=== PATIENT | female | born 1990 | race Hispanic/Latino ===

== ENCOUNTER 2019-12-29 15:17 | Inpatient (IN) | payer OTHER, SELFPAY ==
--- OUTSIDE RECORDS SUMMARY | 2019-12-29 15:20 | XMS REPORT | Summary of Care ---
:1990 Author Organization [facility] - Health Address [address] [place], [place] [address] Care Team Providers Name Role Phone Pcp, Patient Does Not Have A Primary Care Provider [id number] Reason for Referral Radiology Services (STAT) Status Reason Specialty Diagnoses / Referred By Referred To Procedures Contact Contact New Request Diagnostic Diagnoses RUQ pain Lucio Wilson, Radiology Procedures XR KUB [address] [place] [address] [place] [id number] Radiology Services (STAT) Status Reason Specialty Diagnoses / Referred By Referred To Procedures Contact Contact New Request Diagnostic Diagnoses RUQ pain Lucio Wilson, Radiology Procedures US GALL BLADDER [address] [facility] [address] [place] [address] Reason for Visit Reason Comments Abdominal Pain Auth/Cert Status Reason Specialty Diagnoses / Referred By Referred To Procedures Contact Contact Emergency Medicine [facility] Em ergency Dept [address] [place] [address] [place] [address] Fax: Encounter Details Date Type Department Care Team Description 12/28/2019 Emergency ADC-Emergency Lucio Wilson MD RUQ pain (Primary Dx); Department [address] [facility] Dehydration [address] [place] [address] [address] [place] [address] [place] [phone] Allergies No Known Allergiesdocumented as of this encounter (statuses as of 12/28/2019) Medications Medication Sig Dispensed Refills Start Date End Date Status ketorolac (TORADOL) 10 Take 1 tablet by 15 tablet 0 06/08/2016 Active mg tablet mouth every 6 (six) hours as needed (FOR HEADACHES). dicyclomine (BENTYL) 10 Take 1 capsule 20 capsule 0 12/28/2019 Active mg capsuleIndications: by mouth 4 RUQ pain (four) times daily. ondansetron 4 mg Take 1 tablet by 20 tablet 0 12/28/2019 Active disintegrating mouth every 8 tabletIndications: RUQ (eight) hours as pain needed for Nausea and Vomiting (N/V). Polyethylene Glycol Take 1 Packet by 10 Packet 0 12/28/2019 Active 3350 (MIRALAX) 17 gram mouth every 24 powderIndications: RUQ (twenty-four) pain hours as needed for Constipation. documented as of this encounter (statuses as of 12/28/2019) Active Problems No known active problemsdocumented as of this encounter (statuses as of 12/28/2019) Social History Tobacco Use Types Packs/Day Years Used Date Never Assessed Sex Assigned at Date Recorded Not on file Job Start Date Occupation Industry Not on file Not on file Not on file Travel History Travel Start Travel End No recent travel history available. COVID-19 Exposure Response Date Recorded In the last month, have you been in contact with No / Unsure 12/28/2019 10:03 AM CDT someone who was confirmed or suspected to have Coronavirus / COVID-19? documented as of this encounter Last Filed Vital Signs Vital Sign Reading Time Taken Comments Blood Pressure 160/88 12/28/2019 12:00 PM CDT Pulse 87 12/28/2019 12:00 PM CDT Temperature 37.1 C (98.8 F) 12/28/2019 9:55 AM CDT Respiratory Rate 20 12/28/2019 12:00 PM CDT Oxygen Saturation 98% 12/28/2019 12:00 PM CDT Inhaled Oxygen Concentration - - Weight 68 kg (150 lb) 12/28/2019 9:55 AM CDT Height - - Body Mass Index 30.3 06/08/2016 9:08 AM CDT documented in this encounter Discharge Instructions InstructionsLucio Wilson MD - 12/28/2019 RETURN FOR ANY QUESTIONS OR CONCERNS Today you were seen by Lucio Wilson Jr., MD You were seen today for Chief Complaint Patient presents with Abdominal Pain Your ER diagnosis was ICD-10-CM ICD-9-CM 1. RUQ pain R10.11 789.01 NO LIFE-THREATENING FINDINGS ON TODAY'S EXAM. YOUR PRESCRIPTIONS : Check out [employer] for medication discounts Medication List ASK your doctor about these medications ketorolac 10 mg tablet Commonly known as: TORADOL Take 1 tablet by mouth every 6 (six) hours as needed (FOR HEADACHES). ER precautions and follow up : 1. Return to ER if your symptoms should worsen or fail to improve within 72 hours. 2. The care provided in the emergency room was for acute problems only. 3. You should follow up with your primary care provider within 72 hours. 4. Fill and take all your medications as prescribed. 5. Make sure you are staying adequately hydrated. Busque attencion immediatamente si usted tiene los sitomas sigue, vuelve peor o si hay sitomas nuevas o para cualquiera preoccupacion incluyendo dolor del pecho, falta aire, se siente debile, mas fievre, mas dolor, nausea, vomitando, sangrando que no es normal, confusion, baja or pierdas conciencia. MAY FOLLOW-UP WITH A PROVIDER OF YOUR CHOICE, SUCH : 1. A PHYSICIAN OF YOUR CHOICE 2. [facility], . LOCATIONS IN [facility] 3. [facility], [address] [place] [address]; [phone] OR, IF YOU WISH TO FOLLOW-UP WITHIN THE [facility], MAY TRY THESE OPTIONS (CLINIC APPOINTMENTS AVAILABLE ON [id number] BASIS): 1. SCHEDULE AN APPOINTMENT ONLINE AT WWW[facility] 2. OR CALL THE [facility] ACCESS CENTER AT OR 3. OR CALL YOUR [facility] PHYSICIAN'S OFFICE DIRECTLY IF YOU ARE ALREADY AN ESTABLISHED [facility] PATIENT. [facility] RETURN TO WORK / SCHOOL EXCUSE Rekha Peres WAS SEEN IN THE ER AND DISCHARGED 12/28/2019 TODAY, 11:34 AM & May return to Work / School / Incarceration on X with activity as tolerated indicated below. ___The following limitations apply until pt is seen by Physician and cleared to return to normal activity. _X_ Off for two days and return to activity as tolerated at work or school ___ No Sports ___ No work ___ Do not return until fever free for 24 hours. ___ No school LUCIO WILSON Jr., MD [facility] EMERGENCY DEPRTMENT [address] [place] [address] [place] [address] ### The patient may have been given Narcotic pain medications during their stay in the ED that may show up on a Drug Screen. The hospital discharge paper work will identify these medications. AttachmentsThe following attachments cannot be sent through Care Everywhere. Abdominal Pain, Adult (Croatian)Dehydration (Adult) (Croatian)documented in this encounter Plan of Treatment Health Maintenance Due Date Last Done Comments VARICELLA VACCINES ( - 1992 2-dose childhood series) DTaP,Tdap,and Td Vaccines ( - 2002 Tdap) PAP SMEAR 2012 INFLUENZA VACCINE (Season Ended) 2020 PNEUMOCOCCAL 0-64 YEARS COMBINED Aged Out No longer eligible based on SERIES patient's age to complete this topic documented as of this encounter Procedures Procedure Name Priority Date/Time Associated Comments Diagnosis XR KUB STAT 12/28/2019 11:21 RUQ pain Results for this AM CDT procedure are i n the results section. US GALL BLADDER STAT 12/28/2019 10:54 RUQ pain Results for this AM CDT procedure are i n the results section. CORONAVIRUS COVID-19 STAT 12/28/2019 10:07 RUQ pain Res ults for this TESTING AM CDT procedure are i n the results section. CBC WITH DIFFERENTIAL STAT 12/28/2019 10:07 RUQ pain Re sults for this AM CDT procedure are i n the results section. URINALYSIS STAT 12/28/2019 10:07 RUQ pain Results for this AM CDT procedure are i n the results section. ACTIVATED PARTIAL STAT 12/28/2019 10:07 RUQ pain Result s for this THRMPLAS GARY AM CDT procedure are i n the results section. PROTHROMBIN TIME / STAT 12/28/2019 10:07 RUQ pain Resul ts for this INR AM CDT procedure are i n the results section. CBC WITH DIFFERENTIAL Routine 12/28/2019 10:07 RUQ pain Re sults for this AM CDT procedure are i n the results section. BASIC METABOLIC PANEL STAT 12/28/2019 10:07 RUQ pain Re sults for this (NA, K, CL, CO2, AM CDT procedure a re in GLUCOSE, BUN, the results CREATININE, CA) section. HEPATIC FUNCTION STAT 12/28/2019 10:07 RUQ pain Results for this PANEL (41476) AM CDT procedure are in (ALB,T.PRO,BILI the results T,BU/BC,ALT,AST,ALK section. PHOS) LIPASE STAT 12/28/2019 10:07 RUQ pain Results for this AM CDT procedure are i n the results section. POCT TEST MELIZA 12/28/2019 10:03 RUQ pain Resu lts for this AM CDT procedure are i n the results section. documented in this encounter Results XR KUB (12/28/2019 11:21 AM CDT) Specimen Narrative Performed At EXAM: XR KUB PACS/VR/DOSE HISTORY: abdominal pain COMPARISON: None. FINDINGS: The bowel gas pattern is normal and no opaque stones o r masses are found. Procedure Note [facility], Radiant Results Inft User - 2019 11:25 AM CDT EXAM: XR KUB HISTORY: abdominal pain COMPARISON: None. FINDINGS: The bowel gas pattern is normal and no o paque stones or masses are found. Performing Organization Address City/State/Zipcode Phone Number PACS/VR/DOSE US GALL BLADDER (12/28/2019 10:54 AM CDT) Specimen Narrative Performed At HISTORY: RUQ Abdominal pain. PACS/VR/DOSE TECHNIQUE: Gallbladder is evaluated in multiple planes with the patient in different positions. Color imaging is ut ilized. FINDINGS: Gallbladder is of normal size and shape with no edema or thickening of the robles. No gallstones. No biliary slu dge or crystals seen. No free fluid detected in pericholecystic space. A non calcified 5 mm polyp noted attached to the mucosal lining of the gallbladder. Common hepatic duct is 3.5 mm. Hepatic and portal venou s system appeared patent. CONCLUSION: 5 mm polyp noted attached to the mucosa li merly the gallbladder. No gallstones or any signs of acute chol ecystitis. Procedure Note [facility], Radiant Results Inft User - 2019 10:56 AM CDT HISTORY: RUQ Abdominal pain. TECHNIQUE: Gallbladder is evaluated in m ultiple planes with the patient in different positions. Color imaging is ut ilized. FINDINGS: Gallbladder is of normal size and shape with no edema or thickening of the robles. No gallstones. No biliary sludge or crystals seen. No free fluid detected in pericholecysti c space. A noncalcified 5 mm polyp noted attached to the mucosal lining of the gallbladder. Common hepatic duct is 3.5 mm. Hepatic and portal venou s system appeared patent. CONCLUSION: 5 mm polyp noted attached to the mucosa lining the gallbladder. No gallstones or any signs of acute chol ecystitis. Performing Organization Address [facility] Phone Number PACS/VR/DOSE CORONAVIRUS COVID-19 TESTING (12/28/2019 10:07 AM CDT) Pathologist [facility] SARS-CoV-2 Not Detected Not Detected [facility] Specimen Swab - NASOPHARYNGEAL SWAB Narrative Performed At [facility] COVID-19 Assay is an isothermal nucleic [facility] acid amplification test intended for the qualitative detection of nucleic acid from SARS-CoV-2 viral RNA in nasopharyngeal (ECONOMIC MANAGER) specimens. It is used under Emergency Use Authorization (EUA) by FDA. The limit of detection (LOD) of the assay is 125 Genome Equivalents/mL. A positive result is indicative of the presence of SARS-CoV-2 RNA. Clinical correlation with patient history and other diagnostic information is necessary to determine patient infection status. A negative (Not Detected) result does not preclude SARS-CoV-2 infection. Clinical correlation with patient history and other diagnostic information should be used in patient management decisions. Invalid: Please collect a new specimen for repeat patient testing if clinically indicated. Performing Organization Address [facility] Phone Number [facility] CLIA: [id number], [address] [place], [place] [address] CBC WITH DIFFERENTIAL (12/28/2019 10:07 AM CDT) Pathologist Sig [facility] WBC 14.95 (H) 4.30 - 11.10 [facility] 10*3/L [facility] RBC 4.41 3.93 - 5.25 [facility] 10*6/L [facility] HGB 13.0 11.6 - 15.0 [facility] g/dL [facility] HCT 39.2 35.7 - 45.2 % [facility] MCV 88.9 80.6 - 95.5 fL [facility] MCH 29.5 25.9 - 32.8 pg [facility] MCHC 33.2 31.6 - 35.1 [facility] g/dL [facility] RDW-SD 40.0 39.0 - 49.9 fL [facility] RDW-CV 12.3 12.0 - 15.5 % [facility] PLT 267 166 - 358 [facility] 10*3/L [facility] MPV 11.3 9.5 - 12.9 fL [facility] NRBC/100 WBC 0.0 0.0 - 10.0 /100 [facility] WBCs [facility] NRBC x10^3 <0.01 10*3/L [facility] GRAN MAT (NEUT) % 84.5 % [facility] IMM GRAN % 0.50 % [facility] LYMPH % 9.0 % [facility] MONO % 5.4 % [facility] EOS % 0.3 % [facility] BASO % 0.3 % [facility] GRAN MAT x10^3(ANC) 12.65 (H) 1.88 - 7.09 [facility] 10*3/uL [facility] IMM GRAN x10^3 0.08 (H) 0.00 - 0.06 [facility] 10*3/uL [facility] LYMPH x10^3 1.34 1.32 - 3.29 [facility] 10*3/uL [facility] MONO x10^3 0.80 0.33 - 0.92 [facility] 10*3/uL [facility] EOS x10^3 0.04 0.03 - 0.39 [facility] 10*3/uL [facility] BASO x10^3 0.04 0.01 - 0.07 [facility] 10*3/uL [facility] Specimen Blood - VENOUS Performing Organization Address City/State/Zipcode Phone Number [facility] CLIA: [id number], [address] [place], [place] [address] Prothrombin Time (PT) / INR (12/28/2019 10:07 AM CDT) PROTIME PATIENT 13.8 12.0 - 14.7 [facility] LABORATORY INR 1.1Comment: Normal [facility] INR <1.1; [facility] LABORATORY 2.0 to 3.0 or 2.5 to 3.5, depending upon the indications. Specimen Blood - VENOUS Performing Organization Address [facility] Centercode Phone Number [facility] CLIA: [id number], [address] [place] [address] aPTT (12/28/2019 10:07 AM CDT) [facility] APTT Patient 26 23 - 38 Seconds [facility] Specimen Blood - VENOUS Narrative Performed At The [facility] patient population mean normal value [facility] for aPTT is 30 seconds. Performing Organization Address [facility] Centercola Phone Number [facility] CLIA: [id number], [address] [place] [address] [address] [facility] [place] Lipase Serum (12/28/2019 10:07 AM CDT) [facility] LIPASE 38 0 - 220 U/L [facility] Specimen Blood - VENOUS Performing Organization Address [facility] Phone Number [facility] CLIA: [id number], [address] [place] [address] Hepatic Function Panel (ALB, T.PRO, BILI T, BU/BC, ALT, AST, ALK PHOS) (12/28/2019 10:07 AM CDT) [facility] TOTAL BILI 0.3 0.1 - 1.1 mg/dL [facility] BILI UNCON 0.5 0.1 - 1.1 mg/dL [facility] BILI CONJ 0.0 0.0 - 0.3 mg/dL [facility] T PROTEIN 8.4 (H) 6.3 - 8.2 g/dL [facility] ALBUMIN 5.0 3.5 - 5.0 g/dL [facility] ALK PHOS 61 34 - 122 U/L [facility] ALTv 25 5 - 35 U/L [facility] AST(SGOT) 29 13 - 40 U/L [facility] Specimen Blood - VENOUS Performing Organization Address City/State/Zipcode Phone Number [facility] CLIA: [id number], [address] [place] [address] Basic Metabolic Panel (NA, K, CL, CO2, GLUCOSE, BUN, CREATININE, CA) (12/28/2019 10:07 AM CDT) Pathologist [facility] nature NA 141 135 - 145 mmol/L [facility] K 3.9 3.5 - 5.0 mmol/L [facility] CL 105 98 - 108 mmol/L [facility] CO2 TOTAL 27 23 - 31 mmol/L [facility] AGAP 9 2 - 16 [facility] BUN 12 7 - 23 mg/dL [facility] GLUCOSE 105 70 - 110 mg/dL [facility] CREATININE 0.75 0.50 - 1.04 [facility] mg/dL [facility] CALCIUM 9.6 8.6 - 10.6 mg/dL [facility] eGFR Calculation 92.0 mL/min/1.73m2 [facility] (Non-) [facility] LABORATOR Y eGFR Calculation 111.5 mL/min/1.73m2 [facility] () [facility] Specimen Blood - VENOUS Narrative Performed At Association of Glomerular Filtration Rate (GFR) [facility] and Staging of Kidney Disease* + + +- + | GFR (mL/min/1.73 m2) | With Kidney Damage | Without Kidney Damage + + +- + | >90 | Stage one | Normal + + +- + | 60-89 | Stage two | Decreased GFR + + +- + | 30-59 | Stage three | Stage three + + +- + | 15-29 | Stage four | Stage four + + +- + | <15 (or dialysis) | Stage five | Stage five + + +- + *Each stage assumes the associated GFR level has been in effect for at least three months. Stages 1 to 5, with or without kidney disease, indicate chronic kidney disease. Notes: Determination of stages one and two (with eGFR >59mL/min/1.73 m2) requires estimation of kidney damage for at least three months as defined by structural or functional abnormalities of the kidney, manifested by either: Pathological abnormalities or Markers of kidney damage (including abnormalities in the composition of the blood or urine or abnormalities in imaging tests). Performing Organization Address [facility] Centercode Phone Number [facility] CLIA: [id number], [address] [place], [place] [address] Urinalysis (12/28/2019 10:07 AM CDT) Pathologist Sig nature APPEARANCE Hazy (A) Clear [facility] COLOR Yellow Yellow [facility] PH 5.0 4.8 - 8.0 [facility] SP GRAVITY 1.027 1.003 - 1.030 [facility] GLU U QUAL Normal Normal [facility] BLOOD Negative Negative [facility] KETONES 80 mg/dL (A) Negative [facility] PROTEIN Negative Negative [facility] UROBILIN Normal Normal [facility] BILIRUBIN Negative Negative [facility] NITRITE Negative Negative [facility] LEUK ZIGGY Negative Negative [facility] RBC/HPF 3 0 - 3 HPF [facility] WBC/HPF 1 0 - 5 HPF [facility] BACTERIA Negative Negative [facility] MUCOUS Moderate (A) Negative LPF [facility] SQ EPITH 14 HPF [facility] Specimen Urine - URINE, CLEAN CATCH Performing Organization Address City/[facility] Centercode Phone Number [facility] CLIA: [id number], [address] [place], [place] [address] POCT Test, Urine (12/28/2019 10:03 AM CDT) Pathologist Sig nature POCT PREG negative On board controls acceptable present with C Line Specimen Urine - URINE, CLEAN CATCH documented in this encounter Visit Diagnoses Diagnosis RUQ pain - Primary Abdominal pain, right upper quadrant Dehydration documented in this encounter Administered Medications Medication Order MAR Action Action Date Dose Rate Site metoclopramide HCl (REGLAN) Given 12/28/2019 10:24 AM CDT 10 mg injection 10 mg 10 mg, Slow IV Push, ONCE, 1 dose, Fri12/28/19 at 1115, MELIZA NaCl 0.9% (NS) bolus infusion New Bag 12/28/2019 10:06 AM CDT 1,000 mL 999 mL/hr 1,000 mL at 999 mL/hr, 1,000 mL, IV Infusion, ONCE, 1 dose, 12/28/19 at 1015, MELIZA documented in this encounter"
--- OUTSIDE RECORDS SUMMARY | 2019-12-29 15:20 | XMS REPORT ---
:1990 Author Organization [facility] t Address [address] [place] [address] Dr. Zayas [address] [place] [address] Care Team Providers Name Role Phone Unavailable Unavailable Unavailable Problems This patient has no known problems. Allergies, Adverse Reactions, Alerts This patient has no known allergies or adverse reactions. Medications This patient has no known medications.
[2019-12-29] MEDS ORDERED: KETOROLAC 30 MG/ML INJ ONE ×2 (16:50→20:47)
[2019-12-29] MEDS ORDERED: ONDANSETRON 4 MG/2 ML VIAL ONE ×2 (16:52→20:47)
[2019-12-29] MEDS ORDERED: NA CHLORIDE 0.9% 1,000 ML ONE (16:53)
[2019-12-29 17:03] LABS: Absolute Lymphocytes (CBC) 1.6 K/uL (0.7-4.9); Basophils % 0.4 % (0-1.3); Hematocrit 39.8 % (36.0-45.0); Lymphocytes % 13.7 % (15.3-44.8); MPV 10.1 fL (7.6-11.3); RBC Red Blood Cell Count 4.52 M/uL (3.86-4.86)
[2019-12-29 17:17] LABS: Albumin 3.8 g/dL (3.4-5.0); Bilirubin Direct 0.2 mg/dL (0-0.2); Bilirubin Total 0.7 mg/dL (0.2-1.0); Potassium 3.3 mmol/L (3.5-5.1); Protein, Total 8.2 g/dL (6.4-8.2)
--- NOTE | 2019-12-29 17:20 | RAD REPORT ---
EXAM DESCRIPTION: CT - Stone Protocol - 12/29/2019 5:13 pm CLINICAL HISTORY: Flank pain. abd pain COMPARISON: No comparisons TECHNIQUE: Axial images were obtained without oral or IV contrast. Lack of contrast limits solid org an and vascular assessment. The [id number] spans the entirety of the system partially obscuring uppermost abdomen and lung bases. Coronal reformatted images were obtained and reviewed. All CT scans are performed using dose optimization technique as appropriate and may include automated exposure control or mA/KV adjustment according to patient size. FINDINGS: The lower lung stewart are clear. Imaged portions of the liver and spleen show no suspicious findings on non-contrast imaging. The panc reas and adrenal glands are normal. No pathologic lymphadenopathy in the abdomen or pelvis. No urinary tract stones or obstructive uropathy. No bowel obstruction, free air, free fluid or abscess. The appendix is thickened to 15 mm with surrou nding inflammatory changes. No significant bony abnormality. IMPRESSION: Acute appendicitis.
[2019-12-29] MEDS ORDERED: PIPER/TAZO/NS 3.375gm 3.375 GM/100 ML BAG ONE (18:02)
[2019-12-29 18:05] LABS: Urine Bacteria <20 /HPF (<20); Urine Culture Reflex Order NOT NEEDED; Urine Mucus 2+ /HPF (NONE SEEN)
[2019-12-29] MEDS ORDERED: ACETAMINOPHEN 500 MG TAB PO PRN (18:14)
[2019-12-29] MEDS ORDERED: ONDANSETRON 4 MG/2 ML VIAL IV PRN ×2 (18:14→21:51)
[2019-12-29] MEDS ORDERED: D5 0.45 NS 1,000 ML IV SCH (19:00)
[2019-12-29] MEDS ORDERED: BUPIVACA 0.25%/EPI 0.0005%/PF 30 ML VIAL ONE (19:19)
--- NOTE | 2019-12-29 19:49 | HP ---
Date of Admission: 12/29/2019 Brief History Of Present Illness: Patient is a 29-year-old female who presents to the hospital with approximately 1-1/2 day history of periumbilical now right lower quadrant abdominal pain. She went t [facility], who gave her pain medication and she states she had an intestinal infection. She went home and her pain continued to worsen and localized to the right lower quadrant. As such, s he came to the emergency room with the above-stated complaints. She has had persistent nausea, vomit ing, fever, subjective, and chills. No change in bowel or bladder habits. No sick contacts. No rec ent travel. No COVID exposures by her description. Past Medical History: Negative. Past Surgical History: Negative. Allergies: NO KNOWN DRUG ALLERGIES. Medications: None. Social History: She denies smoking, alcohol, recreational drug use. 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 Family History: Reviewed, noncontributory Review of Systems: 10-point review of systems other than HPI, denies. Physical Examination: General: At the time of examination, she is awake, alert, oriented. Psychiatric: She is appropriate conversive. HEENT: Normocephalic. Sclerae icteric. Mucous membranes are moist. Oropharynx clear. Neck: Supple. No JVD. Chest: Normal expansion and excursion. Cardiovascular: Regular rhythm. Pulmonary: Clear to auscultation bilaterally. Abdomen: Soft with positive right lower quadrant focal peritonitis. McBurney's point. Positive adriana ound. Positive guarding consistent with acute appendicitis. Extremities: No clubbing, cyanosis, edema. Skin: Warm, dry. Laboratory Data: Reveals a white blood cell count of 11.9, hemoglobin is 12.9, hematocrit 39.8, neut rophils are 78%, platelet count 251. Her sodium is 137, potassium 3.3, chloride 104, carbon dioxide 27, BUN 10, creatinine 0.9, glucose 98, calcium is 9.1, total bilirubin 0.7, direct component 0.2, T 10, ALT 22, alkaline phosphatase is 64, lipase is 54. UA is currently pending. She has CT scan pe rformed of the abdomen and pelvis, which is officially read as acute appendicitis. The appendix thic kened to 15 mm with surrounding inflammatory changes. Assessment And Plan: This is a 29-year-old female who comes in with signs and symptoms of acute nonp erforated appendicitis. 1.IV fluid hydration. 2.Antibiotic coverage. 3.I have explained the risks, benefits, alternatives of laparoscopic possible open appendectomy in i ndicated procedure. The patient understands risks include bleeding, infection, damage to surrounding tissue, need further operative procedures. She agrees to proceed as indicated. DELL/EDWARD Voice ID: [id number]
[2019-12-29] MEDS ORDERED: Ringers Lactate 1,000 ML IV ONE (20:24)
[2019-12-29] MEDS ORDERED: MIDAZOLAM HCL 2 MG/2 ML INJ ONE (20:46)
[2019-12-29] MEDS ORDERED: propofoL 200 MG/20 ML VIAL IV ONE (20:46)
[2019-12-29] MEDS ORDERED: GLYCOPYRROLATE 0.2 MG/ML SYR ONE (20:46)
[2019-12-29] MEDS ORDERED: FENTANYL CITR 100 MCG/2 ML ONE (20:46)
[2019-12-29] MEDS ORDERED: NEOSTIGMINE 1 MG/ML -5 ML ONE (20:47)
[2019-12-29] MEDS ORDERED: dexAMETHasone 4 MG/ML VIAL ONE (20:47)
[2019-12-29] MEDS ORDERED: ROCURONIUM 50 MG/5 ML VIAL IV ONE (20:47)
[2019-12-29] MEDS ORDERED: LIDOCAINE 2% MPF 5 ML VIAL ONE (20:47)
--- NOTE | 2019-12-29 21:30 | P.OP ---
Preoperative diagnosis: Acute Appendicitis Postoperative diagnosis: Acute Appendicitis Primary procedure: Laparoscopic Appendectomy Anesthesia: GETA + Local Estimated blood loss: <5cc Specimen: Appendix Findings: Non-perforated appendicitis Complications: None Transferred to: Recovery Room Condition: Good
[2019-12-29] MEDS ORDERED: HYDROCODONE/APAP 7.5/325 MG TAB PO PRN (21:51)
[2019-12-29] MEDS ORDERED: Levofloxacin500mg IV 500 MG/100 ML BAG IV SCH (22:00)
[2019-12-29] MEDS: D5.45NS W/KCL 20MEQ 1,000 ML IV SCH (22:47)
[2019-12-29 23:09] VITALS: BMI 36.3
--- NOTE | 2019-12-29 23:37 | OP ---
Date of Procedure: 12/29/2019 Surgeon: Elpidio Souza MD, Preoperative Diagnosis: Acute appendicitis. Postoperative Dignosis: Acute appendicitis. Procedure Performed: Laparoscopic appendectomy. Anesthesia: General endotracheal plus local 0.5% Marcaine with epinephrine. Estimated Blood Loss: Less than 5 mL. Specimens: Vermiform appendix. Findings: Acute nonperforated appendicitis. Complications: None. Disposition: Transferred to recovery room in good condition. Procedure In Detail: After informed consent was obtained patient was brought to the operating room, prepped and draped in the usual sterile fashion. After adequate anesthesia was achieved, an infraumb ilical area was anesthetized with 0.25% Marcaine, sharply incised and a 5 mm trocar was introduced un cortes direct visualization using optical trocar without evidence of complication. Insufflation was obt ained at 15 mmHg at this time. There was no injury to vital structures upon entering the abdomen. T wo additional trocar sites were chosen, 1 in the right lower quadrant, 1 in the suprapubic position. Both of these were anesthetized, sharply incised, and 5 mm trocars were reduced under direct visuali zation without evidence of complication. The umbilical trocar was then up-sized to a 12 mm under dir ect visualization without evidence of complication. Patient was positioned head down, right side up position. Ratcheted grasper was used to grasp the patient's appendix, was found to be acutely inflam ed with some suppurative changes on the anterior surface without evidence of perforation. It was in a cranial orientation on the lateral abdominal wall along the colic gutter. It was easily mobilized using the blunt dissection and grasper. A mesoappendiceal window was created with a [place] retract or Endo ORIN 35 blue load was fired across the base of the appendix with good approximation of tissues . The LigaSure was then used to take the mesoappendix down without evidence of complication. The ap pendix was then placed in EndoCatch bag, removed the umbilical trocar, insufflation obtained at this time. The area was copiously irrigated multiple times and completely clear. The pelvis was washed o ut once again as well. No additional hemostatic maneuvers were required and there was no leakage fro m the staple line. The patient was then positioned in neutral position and the remaining effluent wa s suctioned out. The appendix was sent off for pathologic examination. The umbilical trocar was stephanie sed using a Geo-Ion suture passer with 0 Vicryl in interrupted fashion with good approximatio n of tissues. All skin incisions were copiously irrigated and closed with interrupted ever. Afte r completely desufflating the abdomen under direct visualization without evidence of complication. A sterile dressing was then placed over top. The patient tolerated the procedure without evidence of complication, transferred to the PACU in good condition. All counts were correct at the end of the c ase. DELL/EDWARD Voice ID: [id number] Report ID: [id number]
[2019-12-29] MEDS ORDERED: PIPER/TAZO/NS 3.375gm 6.750 GM/200 ML BAG ONE (23:40)
[2019-12-30] MEDS: METRONIDAZOLE 500mg IVPB 500 MG/100 ML BAG IV SCH ×3 (00:05→12:18)
[2019-12-30] MEDS: PIPER/TAZO/NS 3.375gm 3.375 GM/100 ML BAG IVPB SCH ×2 (01:21→06:23)
[2019-12-30 03:27] VITALS: O2SAT 96
--- NOTE | 2019-12-30 03:34 | ER ---
Nurse's Notes [facility] Name: Rekha Peres Age: 29 yrs Sex: Female : 1990 Arrival Date: 12/29/2019 Time: 15:20 Bed 19 Private MD: Diagnosis: Acute appendicitis Presentation: 12/28 15:53 Chief complaint: Patient states: RLQ pain. radiates to low back, started yesterday, jl7 reports nausea and loose stool today. Reports went to [place] [facility] yesterday and they did an US and x-ray and discharged with Dicyclomine. Pt tachycardic with severe tenderness to RLQ and mild tenderness to RUQwith palpation in triage. Coronavirus screen: Proceed with normal triage. Patient denies a cough. Patient denies shortness of breath or difficulty breathing. Patient denies measured and/or subjective temperature greater than 100.4F prior to today's visit. Patient denies travel on a cruise ship or to a country the [facility] currently lists as an affected area. Patient denies contact with known and/or suspected case of COVID-19. Ebola Screen: No symptoms or risks identified at this time. Initial Sepsis Screen: Does the patient meet any 2 criteria? No. Patient's initial sepsis screen is negative. Does the patient have a suspected source of infection? No. Patient's initial sepsis screen is negative. Risk Assessment: Do you want to hurt yourself or someone else? Patient reports no desire to harm self or others. Onset of symptoms was December 28, 2019. 15:53 Method Of Arrival: Ambulatory jl7 15:53 Acuity: OMAR 2 jl7 Triage Assessment: 15:56 General: Appears in no apparent distress. uncomfortable, Behavior is calm, cooperative, jl7 appropriate for age. Pain: Complains of pain in right lower quadrant Pain radiates to right low back Pain currently is 8 out of 10 on a pain scale. Quality of pain is described as sharp, shooting, Pain began 1 day ago. Is continuous, intermittent. Neuro: Level of Consciousness is awake, alert, obeys commands, Oriented to person, place, time, situation. Cardiovascular: Patient's skin is warm and dry. Respiratory: Airway is patent Respiratory effort is even, unlabored, Respiratory pattern is regular, symmetrical. GI: Abdomen is non-distended, Last BM was December 29, 2019. Abd is soft X 4 quads Abdomen is tender to palpation in right upper quadrant and right lower quadrant. : Denies burning with urination, pain with urination. Derm: Skin is pink, warm \T\ dry. 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 - Social history:: Smoking status: Patient denies any tobacco usage or history of. Screenin:29 Abuse screen: Denies threats or abuse. Denies injuries from another. Nutritional sv screening: No deficits noted. Tuberculosis screening: No symptoms or risk factors identified. Fall Risk None identified. Assessment: 16:40 General: Appears in no apparent distress. uncomfortable, well developed, Behavior is sv calm, cooperative, appropriate for age. Pain: Complains of pain in right lower quadrant Pain radiates to right low back Pain currently is 8 out of 10 on a pain scale. Pain began 1 day ago. Is continuous. Neuro: Level of Consciousness is awake, alert, obeys commands, Oriented to person, place, time, situation, Moves all extremities. Full function Gait is steady. Respiratory: Respiratory effort is even, unlabored, Respiratory pattern is regular, symmetrical. GI: Abdomen is flat, Abd is soft X 4 quads Abdomen is tender to palpation in right lower quadrant. Derm: Skin is intact, Skin is pink, warm \T\ dry. 18:09 Reassessment: Patient appears in no apparent distress at this time. Patient and/or sv family updated on plan of care and expected duration. Pain level reassessed. Patient is alert, oriented x 3, equal unlabored respirations, skin warm/dry/pink. Patient states feeling better. Patient states symptoms have improved. 19:10 Reassessment: Patient appears in no apparent distress at this time. Patient and/or wh family updated on plan of care and expected duration. Pain level reassessed. Patient is alert, oriented x 3, equal unlabored respirations, skin warm/dry/pink. Consent form signed, Pt instructed on NPO. 19:15 GI: Bowel sounds present X 4 quads. wh 20:06 Reassessment: Patient appears in no apparent distress at this time. No changes from previously documented assessment. Patient and/or family updated on plan of care and expected duration. Pain level reassessed. Patient is alert, oriented x 3, equal unlabored respirations, skin warm/dry/pink. Report given to PIPE CHANGERKILEY Espinal Pt taken to OR. Vital Signs: 15:53 BP 126 / 85; Pulse 125; Resp 16; Temp 99.1; Pulse Ox 97% ; Weight 81.65 kg; Pain 8/10; jl7 17:07 BP 131 / 85; Pulse 105; Resp 16; Pulse Ox 100% ; sv 17:30 Pain 2/10; sv 18:08 Pulse 102; Resp 16; Pulse Ox 99% ; sv 19:30 BP 121 / 57; Pulse 74; Resp 18; Pulse Ox 98% on R/A; ED Course: 15:20 Patient arrived in ED. ag5 15:55 Triage completed. jl7 15:59 Ronny Reynaga MD is Attending Physician. kdr 15:59 Arm band placed on right wrist. jl7 16:05 Avril Byrnes RN is Primary Nurse. sv 16:28 ED physician to see patient. sv 16:29 Patient has correct armband on for positive identification. Placed in gown. Bed in low sv position. Call light in reach. Pulse ox on. NIBP on. Door closed. Head of bed elevated. 16:40 Inserted saline lock: 20 gauge in right antecubital area, using aseptic technique. sv Blood collected. Flushed right antecubital with 5 ml normal saline. 17:00 Creatinine (Radiology Only) Sent. sv 17:19 Stone Protocol In Process Unspecified. EDMS 17:57 Elpidio Souza MD is Hospitalizing Provider. kdr 19:04 Primary Nurse role handed off by Avril Byrnes RN sv 19:06 Report given to Silver CAO. sv 19:13 Silver Dixon is Primary Nurse. 20:07 No provider procedures requiring assistance completed. Patient admitted, IV remains in place. Administered Medications: 16:51 Drug: NS 0.9% 1000 ml Route: IV; Rate: 1 bolus; Site: right antecubital; sv 18:08 Follow up: Response: No adverse reaction; IV Status: Completed infusion; IV Intake: sv 1000ml 16:52 Drug: TORadol - Ketorolac 15 mg Route: IVP; Site: right antecubital; sv 17:30 Follow up: Pain 2/10 Adult; Response: No adverse reaction; Marked relief of symptoms; sv Pain is decreased 16:52 Drug: Zofran (Ondansetron) 4 mg Route: IVP; Site: right antecubital; sv 17:30 Follow up: Response: No adverse reaction sv 18:07 Drug: Zosyn 3.375 grams Route: IVPB; Infused Over: 60 mins; Site: right antecubital; sv 19:45 Follow up: Response: No adverse reaction; IV Status: Completed infusion Intake: 18:08 IV: 1000ml; Total: 1000ml. sv Outcome: 18:00 Decision to Hospitalize by Provider. kdr 20:08 Admitted to OR accompanied by nurse, via stretcher, with chart, Report called to Tabitha Espinal RN 20:08 Condition: stable 20:08 Instructed on the need for admit. 20:10 Patient left the ED. anali Signatures: Dispatcher [employer] Avril Martin, RN RN sv Ronny Reynaga MD MD kdr Leal, Jahala, RN RN jl7 Zack, Pro Arreola 5 Corrections: (The following items were deleted from the chart) 16:03 15:53 Chief complaint: Patient states: RLQ pain. radiates to low back, started jl7 yesterday, reports nausea, denies V/D jl7
--- NOTE | 2019-12-30 03:34 | EDPHYS ---
Physician Documentation [facility] Name: Rekha Peres Age: 29 yrs Sex: Female : 1990 Arrival Date: 12/29/2019 Time: 15:20 Bed 19 Private MD: ED Physician Ronny Reynaga HPI: 12/28 18:00 This 29 yrs old Female presents to ER via Ambulatory with complaints of kdr Abdominal Pain. 18:00 The patient presents with abdominal pain in the right upper quadrant, right lower kdr quadrant. Onset: The symptoms/episode began/occurred yesterday, at 05:00. The symptoms radiate to the right flank. Associated signs and symptoms: Pertinent positives: nausea, Pertinent negatives: blood in stools, chest pain, constipation, diarrhea, dysuria, fever, shortness of breath. The symptoms are described as achy, steady, vague, waxing/waning. Modifying factors: The symptoms are alleviated by nothing, the symptoms are aggravated by breathing deeply, movement, touching the area. Severity of pain: At its worst the pain was moderate in the emergency department the pain is unchanged. The patient has not experienced similar symptoms in the past. The patient has been recently seen by a physician: Seen at [facility] yesterday, had full w/u (CT and labs) and was discharged with apparent constipation. She continues to have pain that is worsening. 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 - Social history:: Smoking status: Patient denies any tobacco usage or history of. ROS: 18:00 Constitutional: Negative for fever, chills, and weight loss, Eyes: Negative for injury, kdr pain, redness, and discharge, ENT: Negative for injury, pain, and discharge, Neck: Negative for injury, pain, and swelling, Cardiovascular: Negative for chest pain, palpitations, and edema, Respiratory: Negative for shortness of breath, cough, wheezing, and pleuritic chest pain, Back: Negative for injury and pain, : Negative for injury, bleeding, discharge, and swelling, MS/Extremity: Negative for injury and deformity, Skin: Negative for injury, rash, and discoloration, Neuro: Negative for headache, weakness, numbness, tingling, and seizure activity. Psych: Negative for depression, anxiety, suicide ideation, homicidal ideation, and hallucinations, Allergy/Immunology: Negative for hives, rash, and allergies, Endocrine: Negative for neck swelling, polydipsia, polyuria, polyphagia, and marked weight changes, Hematologic/Lymphatic: Negative for swollen nodes, abnormal bleeding, and unusual bruising. 18:00 Abdomen/GI: Positive for nausea. Exam: 18:00 Constitutional: This is a well developed, well nourished patient who is awake, alert, kdr and in no acute distress. Head/Face: Normocephalic, atraumatic. Eyes: Pupils equal round and reactive to light, extra-ocular motions intact. Lids and lashes normal. Conjunctiva and sclera are non-icteric and not injected. Cornea within normal limits. Periorbital areas with no swelling, redness, or edema. Neck: Trachea midline, no thyromegaly or masses palpated, and no cervical lymphadenopathy. Supple, full range of motion without nuchal rigidity, or vertebral point tenderness. No Meningismus. Chest/axilla: Normal chest wall appearance and motion. Nontender with no deformity. No lesions are appreciated. Cardiovascular: Regular rate and rhythm with a normal S1 and S2. No gallops, murmurs, or rubs. Normal PMI, no JVD. No pulse deficits. Respiratory: Lungs have equal breath sounds bilaterally, clear to auscultation and percussion. No rales, rhonchi or wheezes noted. No increased work of breathing, no retractions or nasal flaring. Back: No spinal tenderness. No costovertebral tenderness. Full range of motion. Skin: Warm, dry with normal turgor. Normal color with no rashes, no lesions, and no evidence of cellulitis. MS/ Extremity: Pulses equal, no cyanosis. Neurovascular intact. Full, normal range of motion. Neuro: Awake and alert, GCS 15, oriented to person, place, time, and situation. Cranial nerves II-XII grossly intact. Motor strength 5/5 in all extremities. Sensory grossly intact. Cerebellar exam normal. Normal gait. Psych: Awake, alert, with orientation to person, place and time. Behavior, mood, and affect are within normal limits. 18:00 Abdomen/GI: Inspection: abdomen appears normal, Bowel sounds: diminished, in all quadrants, Palpation: soft, mild abdominal tenderness, in the right upper quadrant, right lower quadrant and abdomen diffusely, rebound tenderness, is appreciated in the right upper quadrant and right lower quadrant, mild rebound, voluntary guarding, is elicited in the right lower quadrant. Vital Signs: 15:53 BP 126 / 85; Pulse 125; Resp 16; Temp 99.1; Pulse Ox 97% ; Weight 81.65 kg; Pain 8/10; jl7 17:07 BP 131 / 85; Pulse 105; Resp 16; Pulse Ox 100% ; sv 17:30 Pain 2/10; sv 18:08 Pulse 102; Resp 16; Pulse Ox 99% ; sv 19:30 BP 121 / 57; Pulse 74; Resp 18; Pulse Ox 98% on R/A; wh MDM: 18:00 Patient medically screened. kdr 18:00 Data reviewed: vital signs, nurses notes, lab test result(s), radiologic studies. kdr Counseling: I had a detailed discussion with the patient and/or guardian regarding: the historical points, exam findings, and any diagnostic results supporting the discharge/admit diagnosis, lab results, radiology results, the need for further work-up and treatment in the hospital. Physician consultation: Elpidio Souza MD. Admission orders: after a detailed discussion of the patient's condition and case, the admit orders are written by me. 12/28 16:01 Order name: Urine Culture [facility] 12/28 16:01 Order name: Urine Microscopic Only [facility] 12/28 16:25 Order name: Urine Dipstick--Ancillary (enter results) 12/28 16:25 Order name: Urine --Ancillary (enter results) 12/28 16:31 Order name: Basic Metabolic Panel 12/28 16:31 Order name: CBC with Diff 12/28 16:31 Order name: Creatinine for Radiology 12/28 16:31 Order name: Hepatic Function 12/28 16:31 Order name: Lipase 12/28 16:53 Order name: Basic Metabolic Panel; Complete Time: 17:47 EDMS 12/28 16:53 Order name: Liver (Hepatic) Function; Complete Time: 17:47 EDMS 12/28 16:53 Order name: Lipase; Complete Time: 17:47 EDMS 12/28 16:53 Order name: CBC with Automated Diff; Complete Time: 17:16 EDMS 12/28 16:55 Order name: Creatinine (Radiology Only); Complete Time: 17:47 EDMS 12/28 16:01 Order name: Urine Test (obtain specimen); Complete Time: 16:28 snw 12/28 16:01 Order name: Urine Dipstick-Ancillary (obtain specimen); Complete Time: 16:28 snw 12/28 16:31 Order name: IV Saline Lock; Complete Time: 16:52 sv 12/28 16:31 Order name: Labs collected and sent; Complete Time: 16:52 sv 12/28 16:46 Order name: CT Stone Protocol [facility] 12/28 16:52 Order name: Stone Protocol; Complete Time: 17:47 EDMS 12/28 17:29 Order name: Urine Microscopic Only EDID 12/28 17:29 Order name: Urine Culture EDMS Administered Medications: 16:51 Drug: NS 0.9% 1000 ml Route: IV; Rate: 1 bolus; Site: right antecubital; sv 18:08 Follow up: Response: No adverse reaction; IV Status: Completed infusion; IV Intake: sv 1000ml 16:52 Drug: TORadol - Ketorolac 15 mg Route: IVP; Site: right antecubital; sv 17:30 Follow up: Pain 2/10 Adult; Response: No adverse reaction; Marked relief of symptoms; sv Pain is decreased 16:52 Drug: Zofran (Ondansetron) 4 mg Route: IVP; Site: right antecubital; sv 17:30 Follow up: Response: No adverse reaction sv 18:07 Drug: Zosyn 3.375 grams Route: IVPB; Infused Over: 60 mins; Site: right antecubital; sv 19:45 Follow up: Response: No adverse reaction; IV Status: Completed infusion Disposition: 12/29/19 18:00 Hospitalization ordered by Elpidio Souza for Observation. Preliminary diagnosis is Acute appendicitis. - Bed requested for Telemetry/MedSurg (observation). - Status is Observation. wh - Condition is Fair. - Problem is new. - Symptoms are unchanged. Signatures: Dispatcher [employer] Avril Martin RN RN sv Ronny Reynaga MD MD [facility] Ivonne Mares, PYTHON DJANGO DEVELOPER-C PYTHON DJANGO DEVELOPER-Csnw Ruthie Fontanez, RN RN tl1 Gita Henry, KILEY RN jl7 Silver Dixon Corrections: (The following items were deleted from the chart) : 18:00 Hospitalization Ordered by Elpidio Souza MD for Observation. Preliminary diagnosis tl1 is Acute appendicitis. Bed requested for Telemetry/MedSurg (observation). Status is Observation. Condition is Fair. Problem is new. Symptoms are unchanged. kdr 20:10 19:27 12/29/2019 18:00 Hospitalization Ordered by Elpidio Souza MD for Observation. Preliminary diagnosis is Acute appendicitis. Bed requested for Telemetry/MedSurg (observation). Status is Observation. Condition is Fair. Problem is new. Symptoms are unchanged. tl1
[2019-12-30 04:10] LABS: Urine Blood 2+ (NEG); Urine Glucose NEGATIVE (NEG); Urine Protein 2+ (NEG); Urine Specific Gravity 1.025 (1.005-1.030)
[2019-12-30 04:22] LABS: Absolute Lymphocytes (CBC) 0.5 K/uL (0.7-4.9); Basophils % 0.1 % (0-1.3); Hematocrit 35.9 % (36.0-45.0); Lymphocytes % 4.9 % (15.3-44.8); MPV 9.8 fL (7.6-11.3); RBC Red Blood Cell Count 4.08 M/uL (3.86-4.86)
[2019-12-30 04:46] LABS: Albumin 3.1 g/dL (3.4-5.0); Bilirubin Direct 0.2 mg/dL (0-0.2); Bilirubin Total 0.4 mg/dL (0.2-1.0); Magnesium 2.3 mg/dL (1.8-2.4); Phosphorus 1.8 mg/dL (2.5-4.9); Potassium 4.1 mmol/L (3.5-5.1); Protein, Total 7.3 g/dL (6.4-8.2)
[2019-12-30 05:07] LABS: Blood Morphology Comment NOT SEEN (NOT SEEN); Platelet Estimate ADEQ
[2019-12-30] MEDS: POTASS/SODIUM PHOSPHATE 1 PKT POWD.PACK PO SCH ×3 (05:38→07:23)
[2019-12-30] MEDS: INSULIN -REGULAR HUMAN 50 UNIT/0.5 ML ML SQ SCH ×2 (07:30→11:30)
[2019-12-30] MEDS: D5.45NS W/KCL 20MEQ 1,000 ML IV SCH (08:00)
[2019-12-30 16:37] VITALS: BP 123/68; TEMP 98.2
== END 2019-12-30 16:44 | disposition home or self-care (01) | DRG 343 ==
LOC: ER 15:17 → ERHOLD 18:16 → 2ND 21:58 → OBSVTOIN 12-30 07:57
PROVIDERS: ADMIT Surgery; ATTEND Surgery
PROC: 0DTJ4ZZ Resection of Appendix, Percutaneous Endoscopic Approach (ICD-10-PCS; principal; 2019-12-29 21:00)
DX: K35.80 Unspecified acute appendicitis (principal)
CPT/HCPCS: 36415; 74176; 76377; 80048; 80076; 81003; 81015; 81025; 82947; 83690; 83735; 84100; 85025; 87086; 87088; 88304; 96361; 96365; 96366; 96375; 99285; G0378; J2250; J2405; J2543; J2704; J2710; J3010; J7030; J7120